=== PATIENT | male | born 2000 | race Caucasian/White ===

== ENCOUNTER 2019-03-25 15:13 | Emergency (ER) | payer BC, OTHER ==
[~2019-03-25] VITALS: Ht 172.7 cm; Wt 59.4 kg
[~2019-03-25 15:13] MED LIST: ACET500C5 PO; AZIT250T PO; FAMO-96 PO; IBUP-1542 PO; LD2VS100B MM; METO10TA92 PO; ONDA4TAB8 PO
[2019-03-25 15:16] VITALS: Ht 172.7 cm; Wt 59.4 kg
[2019-03-25] MEDS ORDERED: SOD CHLORIDE 0.9% 1,000 ML IV STA (16:30)
[2019-03-25] MEDS ORDERED: ONDANSETRON 4 MG INJ IV STA (16:30)
[2019-03-25] MEDS ORDERED: FAMOTIDINE 20 MG INJ IV STA (16:30)
[2019-03-25] MEDS ORDERED: METOCLOPRAMIDE 10 MG INJ IV ONE (18:00)
[2019-03-25 19:02] VITALS: BP 121/65; PULSE 78; RESP 18
== END 2019-03-25 19:03 | disposition home or self-care (01) ==
LOC: FTE 15:13
DX: F12.10 Cannabis abuse, uncomplicated (principal); Z87.891 Personal history of nicotine dependence
CPT/HCPCS: 80048; 85025; J2405; J2765; J7030; 36415; 96361; 96374; 96375

== ENCOUNTER 2019-03-27 10:25 | Emergency (ER) | payer SELFPAY ==
[~2019-03-27] VITALS: Wt 58.0 kg
[2019-03-27 10:30] VITALS: BP 135/68; PULSE 64; RESP 18
== END 2019-03-27 10:56 | disposition left against medical advice (07) ==
LOC: FTE 10:25
DX: Z53.21 Procedure and treatment not carried out due to patient leaving prior to being seen by health care provider (principal)